=== PATIENT | female | born 1960 | race Caucasian/White ===

== ENCOUNTER 2021-02-19 18:04 | Emergency (ER) | payer OTHER ==
[~2021-02-19] VITALS: Ht 137.2 cm; Wt 97.5 kg
[~2021-02-19 18:04] MED LIST: ATACAND HCT 11 UDTA1 PO; DOXYCYCLINE MON50 M1 PO; INTEGRA PLUS C1 EACH PO; NEURONTIN300 MG PO; POLY119PG PO; ULTRACET PO
[2021-02-19] MEDS ORDERED: TOPROL XL25 M1 (18:33)
[2021-02-19] MEDS ORDERED: VOLTAREN ARTHRI20 GM (18:33)
[2021-02-19] MEDS ORDERED: DIOVAN40 MG (18:33)
[2021-02-19] MEDS ORDERED: DICY20TA PO (23:51)
== END 2021-02-20 | disposition home or self-care (01) ==
LOC: ER 18:04
DX: K40.90 Unilateral inguinal hernia, without obstruction or gangrene, not specified as recurrent (principal)